=== PATIENT | male | born 1975 | race Caucasian/White ===

== ENCOUNTER 2022-01-06 08:19 | Inpatient (IN) | payer SELFPAY ==
[2022-01-06 08:56] VITALS: BMI 20.7
[2022-01-06] MEDS ORDERED: chlordiazePOXIDE HCL 25 MG CAPSULE PO PRN (10:13)
[2022-01-06] MEDS ORDERED: ACETAMINOPHEN 325 MG TABLET (FP) PO PRN ×2 (10:14)
[2022-01-06] MEDS ORDERED: BENZOCAINE/MENTHOL (CHLORASEPTIC ) LOZENGE MM PRN (10:14)
[2022-01-06] MEDS ORDERED: DICYCLOMINE HCL 10 MG CAPSULE PO PRN (10:14)
[2022-01-06] MEDS ORDERED: MAG HYDROX/AL HYDROX/SIMETH 30 ML UNIT-DOSE CUP PO PRN (10:14)
[2022-01-06] MEDS ORDERED: IBUPROFEN 600 MG TABLET (FP) PO PRN (10:14)
[2022-01-06] MEDS ORDERED: LOPERAMIDE HCL 2 MG CAPSULE PO PRN (10:14)
[2022-01-06] MEDS ORDERED: MAGNESIUM HYDROX 2400MG/30ML ORAL SUSPENSION 30 ML CUP PO PRN (10:14)
[2022-01-06] MEDS ORDERED: IBUPROFEN 400 MG TABLET (FP) PO PRN (10:14)
[2022-01-06] MEDS ORDERED: MAGNESIUM CITRATE 300 ML BOTTLE PO PRN (10:14)
[2022-01-06] MEDS ORDERED: ONDANSETRON *ODT* 4 MG TABLET SL PRN (10:14)
[2022-01-06] MEDS ORDERED: METHOCARBAMOL 500 MG TABLET PO PRN (10:14)
[2022-01-06] MEDS ORDERED: BISMUTH SUBSALICYLATE 524 MG/30 ML PO PRN (10:14)
[2022-01-06] MEDS: chlordiazePOXIDE HCL 25 MG CAPSULE PO SCH ×3 (11:54→22:46)
[2022-01-06] MEDS: hydrOXYzine PAMOATE 25 MG CAPSULE (FP) PO SCH ×3 (14:12→22:46)
[2022-01-06] MEDS: MELATONIN 5 MG TABLETS PO SCH (22:46)
[2022-01-06] MEDS: THIAMINE HCL 100 MG TABLET (FP) PO SCH (22:46)
[2022-01-07] MEDS: chlordiazePOXIDE HCL 25 MG CAPSULE PO SCH ×4 (05:36→23:02)
[2022-01-07] MEDS: hydrOXYzine PAMOATE 25 MG CAPSULE (FP) PO SCH ×5 (05:36→23:03)
[2022-01-07] MEDS: PRENATAL VITAMINS W/ FOLIC ACID TABLET (FP) PO SCH (10:18)
[2022-01-07 10:50] LABS: HEMATOCRIT 38.7 % (35.4-49); HEMOGLOBIN 13.1 GM/dL (11.7-16.9); MCH 32.5 pg (25.7-33.7); MEAN CELL VOLUME 95.6 fl (80-96); MEAN PLT VOLUME 8.2 fl (7.5-11.1); PLATELET COUNT 206 10^3/uL (134-434); RBC 4.04 M/mm3 (4.00-5.60); RDW 14.6 % (11.9-15.9)
[2022-01-07 11:29] LABS: ALBUMIN 3.3 g/dl (3.4-5.0); BLOOD UREA NITROGEN 7.5 mg/dL (7-18); CALCIUM 8.5 mg/dL (8.5-10.1)
[2022-01-07 11:32] LABS: CREATININE 0.7 mg/dL (0.55-1.3)
[2022-01-07 11:34] LABS: BILIRUBIN,TOTAL 0.5 mg/dL (0.2-1); TOT PROT 6.5 g/dl (6.4-8.2)
[2022-01-07 11:58] LABS: HIV INTERPRETATION NEGATIVE (NEGATIVE)
[2022-01-07] MEDS: MELATONIN 5 MG TABLETS PO SCH (23:02)
[2022-01-07] MEDS: THIAMINE HCL 100 MG TABLET (FP) PO SCH (23:03)
[2022-01-07 23:37] LABS: PH,URINE 6.5 (5.0-8.0); URINE APPEARANCE CLEAR; URINE BILIRUBIN NEGATIVE (NEGATIVE); URINE COLOR YELLOW; URINE GLUCOSE (UA) 1+ (NEGATIVE); URINE KETONE NEGATIVE (NEGATIVE); URINE LEUK ESTERASE NEGATIVE (NEGATIVE); URINE NITRITE NEGATIVE (NEGATIVE); URINE PROTEIN NEGATIVE (NEGATIVE); URINE UROBILINOGEN 0.2 mg/dL (0.2-1.0)
[2022-01-08] MEDS: hydrOXYzine PAMOATE 25 MG CAPSULE (FP) PO SCH ×5 (06:13→22:31)
[2022-01-08] MEDS: chlordiazePOXIDE HCL 25 MG CAPSULE PO SCH ×4 (06:17→22:31)
[2022-01-08] MEDS: PRENATAL VITAMINS W/ FOLIC ACID TABLET (FP) PO SCH (10:22)
[2022-01-08] MEDS: THIAMINE HCL 100 MG TABLET (FP) PO SCH (22:31)
[2022-01-08] MEDS: MELATONIN 5 MG TABLETS PO SCH (22:31)
[2022-01-09] MEDS ORDERED: chlordiazePOXIDE HCL 10 MG CAPSULE PO PRN
[2022-01-09] MEDS: chlordiazePOXIDE HCL 10 MG CAPSULE PO SCH ×4 (05:40→22:19)
[2022-01-09] MEDS: hydrOXYzine PAMOATE 25 MG CAPSULE (FP) PO SCH ×5 (05:40→22:18)
[2022-01-09] MEDS: PRENATAL VITAMINS W/ FOLIC ACID TABLET (FP) PO SCH (10:40)
[2022-01-09 16:36] LABS: URINE APPEARANCE CLEAR; URINE BILIRUBIN NEGATIVE (NEGATIVE); URINE COLOR YELLOW; URINE GLUCOSE (UA) 2+ (NEGATIVE); URINE KETONE NEGATIVE (NEGATIVE); URINE LEUK ESTERASE NEGATIVE (NEGATIVE); URINE NITRITE NEGATIVE (NEGATIVE); URINE PROTEIN NEGATIVE (NEGATIVE); URINE UROBILINOGEN 0.2 mg/dL (0.2-1.0)
[2022-01-09] MEDS: THIAMINE HCL 100 MG TABLET (FP) PO SCH (22:18)
[2022-01-09] MEDS: MELATONIN 5 MG TABLETS PO SCH (22:19)
[2022-01-10] MEDS: hydrOXYzine PAMOATE 25 MG CAPSULE (FP) PO SCH ×5 (06:45→22:10)
[2022-01-10] MEDS: chlordiazePOXIDE HCL 10 MG CAPSULE PO SCH ×2 (06:46→17:39)
[2022-01-10] MEDS: PRENATAL VITAMINS W/ FOLIC ACID TABLET (FP) PO SCH (10:23)
[2022-01-10] MEDS: THIAMINE HCL 100 MG TABLET (FP) PO SCH (22:10)
[2022-01-10] MEDS: MELATONIN 5 MG TABLETS PO SCH (22:10)
[2022-01-11] MEDS ORDERED: chlordiazePOXIDE HCL 10 MG CAPSULE PO ONE (05:00)
[2022-01-11] MEDS: hydrOXYzine PAMOATE 25 MG CAPSULE (FP) PO SCH ×3 (06:02→15:11)
[2022-01-11] MEDS: PRENATAL VITAMINS W/ FOLIC ACID TABLET (FP) PO SCH (11:16)
[2022-01-11 13:28] VITALS: BP 149/95; PULSE 76; RESP 18; TEMP 97.3
== END 2022-01-11 14:20 | disposition home or self-care (01) | DRG 775 ==
LOC: YASAS 08:19 → Y6N 11:06
PROVIDERS: ADMIT Allergy & Immunology; ATTEND Surgery
PROC: HZ2ZZZZ Detoxification Services for Substance Abuse Treatment (ICD-10-PCS; principal; 2022-01-06)
DX: F10.230 Alcohol dependence with withdrawal, uncomplicated (principal); F17.210 Nicotine dependence, cigarettes, uncomplicated
CPT/HCPCS: 36415; 80053; 81003; 85027; 86780; 87389; 87811; 93005; 93010; C9803-CS; U0003; U0005